=== PATIENT | female | born 1940 | race Two or more races ===

== ENCOUNTER 2024-02-08 10:34 | Emergency (ER) | payer OTHER ==
[~2024-02-08] VITALS: Ht 129.5 cm; Wt 52.9 kg
[2024-02-08] MEDS: ONDANSETRON ODT 4 MG TAB PO ONE (11:15)
[2024-02-08] MEDS: DICYCLOMINE HCL (10MG/ML) 2 ML AMPULE IM ONE (11:16)
[2024-02-08 11:20] LABS: Urine Bacteria None Seen /hpf (None Seen)
[2024-02-08 11:31] LABS: Urine Blood 2+ /uL (Negative); Urine Clarity Clear (Clear); Urine Color Light-Yellow (Yellow); Urine Protein, UAD 1+ (Negative); Urine Specific Gravity 1.019 (1.001-1.035); Urine Urobilinogen Normal (Negative); Urine WBC 1 /hpf (0 - 5); Urine pH 6.5 (5.0-9.0)
[2024-02-08 11:58] LABS: Chloride 97 mmol/L (98-107); Potassium 3.1 mmol/L (3.5-5.1); Sodium 132 mmol/L (136-145)
[2024-02-08 11:59] LABS: Anion Gap 7 (5-15); Calcium 9.8 mg/dL (8.5-10.1); Carbon Dioxide 28 mmol/L (20-30)
[2024-02-08 12:04] LABS: BUN/Creatinine Ratio 18.4 (10.0-20.0); Blood Urea Nitrogen 14 mg/dL (9-23); Glucose 152 mg/dL (74-106)
[2024-02-08 12:15] LABS: Basophils # (auto) 0 10 ^3/uL (0-0.2); Basophils % (auto) 0.3 % (0.0-2.0); Eosinophils # (auto) 0 10 ^3/uL (0-0.8); Hematocrit 43.1 % (36.0-46.0); Hemoglobin 14.8 g/dL (12.2-16.2); Lymphocytes # (auto) 1.1 10 ^3/uL (0.4-5.4); Lymphocytes % (auto) 14.5 % (10.0-50.0); Mean Corpuscular Hemoglobin 29.9 pg (28.0-32.0); Mean Corpuscular Hgb Conc. 34.2 g/dL (32.0-36.0); Mean Corpuscular Volume 87.2 fL (80.0-100.0); Monocytes # (auto) 0.2 10 ^3/uL (0-1.3); Neutrophils # (auto) 6.4 10 ^3/uL (1.6-8.6); Neutrophils % (auto) 82.2 % (37.0-80.0); Red Blood Cells 4.95 10^6/uL (4.0-5.20); Red Cell Distribution Width 13.4 % (11.8-14.3); White Blood Cell 7.8 10^3/uL (4.4-10.8)
[2024-02-08] MEDS: cloNIDine HCL 0.1 MG TAB PO ONE (12:53)
[2024-02-08] MEDS ORDERED: ZOFR4T PO (14:10)
[2024-02-08] MEDS ORDERED: DICY10CA PO (14:10)
[2024-02-08] MEDS ORDERED: CIPR-173 PO (14:10)
[2024-02-08 14:12] VITALS: BP 133/64; PULSE 65; RESP 17; TEMP 98.5; O2SAT 96
== END 2024-02-08 14:16 | disposition home or self-care (01) ==
LOC: ER 10:34
DX: I16.0 Hypertensive urgency (principal); R31.9 Hematuria, unspecified; E87.6 Hypokalemia; E87.1 Hypo-osmolality and hyponatremia
CPT/HCPCS: 36415; 80048; 81001; 84484; 85025; 93005; 96372; 99284; J0500; Q0162